=== PATIENT | female | born 1950 | race Caucasian/White ===

== ENCOUNTER 2021-07-26 09:31 | Outpatient (CLI) | payer MEDICARE, OTHER | END 2021-07-26 09:32 | disposition home or self-care (01) | LOC: BICULT 09:31 | PROVIDERS: ATTEND Nurse Practitioner Family | DX: R22.43 Localized swelling, mass and lump, lower limb, bilateral (principal); M25.869 Other specified joint disorders, unspecified knee | CPT/HCPCS: 76999 ==